=== PATIENT | female | born 1980 | race Caucasian/White ===

== ENCOUNTER 2018-08-12 20:31 | Emergency (ER) | payer OTHER ==
[~2018-08-12] VITALS: Ht 172.7 cm; Wt 65.8 kg
[2018-08-12] MEDS ORDERED: TOPAMAX 100 MG100 MG PO (21:31)
[2018-08-12] MEDS ORDERED: PROZAC20 MG PO (21:32)
[2018-08-12] MEDS ORDERED: EXCEDRIN CAPLE1 EACH PO (21:32)
[2018-08-12 21:35] LABS: ABSOLUTE NEUTROPHILS 3.8 thou/uL (1.4-8.2); BASOPHILS 0.9 % (0.0-2.0); EOSINOPHILS 1.2 % (0.0-3.0); HEMATOCRIT 38.5 % (37.0-47.0); HEMOGLOBIN 12.7 gm/dL (12.0-15.0); LYMPHOCYTES 22.8 % (24.0-44.0); MCH 28.1 pg (26.0-34.0); MONOCYTES 7.9 % (1.0-8.0); PLATELET COUNT 295 thou/uL (150-400); POLYS 67.2 % (36.0-66.0); RBC 4.52 mil/uL (4.20-5.00); RDW 15.1 % (10.5-14.5); WBC 5.6 thou/uL (4.0-11.0)
[2018-08-12 21:43] LABS: CALCIUM 9.2 mg/dL (8.5-10.1); CREATININE 0.8 mg/dL (0.6-1.0); POTASSIUM 3.3 mmol/L (3.5-5.1)
[2018-08-12] MEDS ORDERED: REGLAN 5 MG TAB5 MG PO (23:36)
[2018-08-12 23:47] VITALS: BP 119/69
--- NOTE | 2018-08-14 09:11 | EKG ---
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[place] : 1980 Requested By: Dara Jones Order Number: [id number] MD: Tyrone Benavidez Measurements Intervals Organ Rate: 87 P: 87 IA: 147 QRS: 77 QRSD: 96 T: 58 QT: 393 QTc: 473 Interpretive Statements Sinus rhythm Normal tracing No previous ECG available for comparison Electronically Signed On 08-14-2018 9:11:51 CDT by Tyrone Benavidez [email or web address] ��������������������������������������������� <ELECTRONICALLY SIGNED> ���������������������������������������� By: Tyrone Benavidez MD, [facility] ��������������������������������������������� 08/14/18 0911 2048 Tyrone Benavidez MD, FACC /EPI
== END 2018-08-12 23:53 | disposition home or self-care (01) ==
LOC: ER 20:31
PROVIDERS: Emergency Medicine
DX: G43.909 Migraine, unspecified, not intractable, without status migrainosus (principal); R55 Syncope and collapse; Z98.890 Other specified postprocedural states; Z90.12 Acquired absence of left breast and nipple

== ENCOUNTER 2019-01-19 10:55 | Emergency (ER) | payer OTHER ==
[~2019-01-19] VITALS: Ht 172.7 cm; Wt 68.0 kg
[~2019-01-19 10:55] MED LIST: EXCEDRIN CAPLE1 EACH PO; PROZAC20 MG PO; REGLAN 5 MG TAB5 MG PO; TOPAMAX 100 MG100 MG PO
[2019-01-19 10:59] VITALS: BP 118/37
[2019-01-19] MEDS ORDERED: MEDROLDOSEPACK PO (11:24)
[2019-01-19] MEDS ORDERED: NORFLEX100 MG PO (11:24)
[2019-01-19] MEDS ORDERED: MOBIC7.5 MG PO (11:24)
== END 2019-01-19 11:48 | disposition home or self-care (01) ==
LOC: ER 10:55
DX: M54.42 Lumbago with sciatica, left side (principal); Z79.899 Other long term (current) drug therapy; Z79.82 Long term (current) use of aspirin; Z98.890 Other specified postprocedural states

== ENCOUNTER 2019-02-06 15:15 | Emergency (ER) | payer OTHER ==
[~2019-02-06] VITALS: Ht 172.7 cm; Wt 68.0 kg
[~2019-02-06 15:15] MED LIST changes: +MEDROLDOSEPACK PO; +MOBIC7.5 MG PO; +NORFLEX100 MG PO
[2019-02-06] MEDS ORDERED: NEURONTIN100 MG PO (17:32)
[2019-02-06] MEDS ORDERED: MOBIC7.5 MG PO (17:32)
[2019-02-06 17:45] VITALS: BP 129/54
== END 2019-02-06 17:45 | disposition home or self-care (01) ==
LOC: ER 15:15
DX: M54.5 Low back pain (principal); Z98.890 Other specified postprocedural states